=== PATIENT | female | born 1945 | race Caucasian/White ===

== ENCOUNTER 2021-05-21 19:13 | Emergency (ER) | payer MEDICARE, OTHER ==
[~2021-05-21] VITALS: Ht 167.6 cm; Wt 79.4 kg
--- NOTE | 2021-05-21 19:45 | NUR ---
PT BIBSON C/O BILATERAL LOWE EXTREMITY SWELLING. PT AAOX4 BREATHING EVENLY AND UNLABORED. PT ATTACHED TO MONITOR AND POX. PER PT, THE ONLY THING THAT IS DIFFERENT IS LEXAPRO WAS ADDED TO HER MEDICATIONS. PT DENIES PAIN, JUST "SKIN TIGHTNESS". PT ATTACHED TO MONITOR AND POX.
--- NOTE | 2021-05-21 19:55 | NUR ---
LAB AT BEDSIDE
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
[2021-05-21 20:20] LABS: BASOPHILS # (AUTO) 0.1 K/uL (0.0-0.2); BASOPHILS % (AUTO) 1.5 % (0.0-2.0); EOSINOPHILS % (AUTO) 0.1 % (0.0-6.0); HEMATOCRIT 42 % (33-45); HEMOGLOBIN 13.1 g/dL (11.5-14.8); LYMPHOCYTES % (AUTO) 15.7 % (20.0-44.0); MEAN CORPUSCULAR HGB CONC 31 g/dl (31.0-36.0); MEAN CORPUSCULAR VOLUME 87 fL (82-100); MONOCYTES # (AUTO) 0.4 K/uL (0.1-1.30); MONOCYTES % (AUTO) 6.8 % (2.0-12.0); NEUTROPHILS # (AUTO) 4.6 K/uL (1.8-8.9); NEUTROPHILS % (AUTO) 75.9 % (43.0-81.0); PLATELET COUNT (AUTO) 162 K/uL (150-450); WHITE BLOOD COUNT (AUTO) 6.1 K/uL (4.3-11.0)
[2021-05-21 20:27] LABS: CALCIUM, SERUM 9.4 mg/dL (8.5-10.1); CREATININE 0.8 mg/dL (0.6-1.3); POTASSIUM 4.3 mmol/L (3.5-5.1)
[2021-05-21 20:39] LABS: ALBUMIN 3.6 g/dL (3.4-5.0); BILIRUBIN,DIRECT 0.1 mg/dL (0.0-0.2); BILIRUBIN,TOTAL 0.3 mg/dL (0.2-1.0); TOTAL PROTEIN, SERUM 6.4 g/dL (6.4-8.2)
--- NOTE | 2021-05-21 20:47 | NUR ---
CALLED [facility] FOR CXR
--- NOTE | 2021-05-21 23:17 | NUR ---
Patient discharged to home in stable condition. Written and verbal after care instructions given. Patient verbalizes understanding of instruction. Pt wheeled out to son's car.
[2021-05-21 23:19] VITALS: BP 126/76
== END 2021-05-21 23:17 | disposition home or self-care (01) ==
LOC: ER 19:20
DX: R60.0 Localized edema (principal); F32.9 Major depressive disorder, single episode, unspecified; E78.5 Hyperlipidemia, unspecified; E03.9 Hypothyroidism, unspecified; Z90.49 Acquired absence of other specified parts of digestive tract; Z98.890 Other specified postprocedural states; Z86.718 Personal history of other venous thrombosis and embolism; Z60.2 Problems related to living alone
CPT/HCPCS: 36415; 71045-TC; 80048-TC; 80076-TC; 83880; 85025-TC; 85378-TC; 93970-TC